=== PATIENT | male | born 1965 | race Caucasian/White ===

== ENCOUNTER 2016-12-10 11:14 | Emergency (ER) | payer MEDICAID ==
[~2016-12-10] VITALS: Ht 180.3 cm; Wt 104.3 kg
[~2016-12-10 11:14] MED LIST: AMOXIL500 MG PO; FLEXERIL10 MG PO; LORTAB 5/500 501 TAB PO; LORTAB 500 MG-71 TAB PO; MEDROL 4MG. DOSE4 MG PO; NAPROXEN SODIU500 MG PO; NOMEDS XX; PHENERGAN VC +120 M1 PO; TRAMADOL 50MG T50 MG PO; ULTRAM 50 MG TA50 MG PO; ZITHROMAX Z PA250 MG PO
--- NOTE | 2016-12-10 11:25 | Emergency Room Report ---
History of Present Illness Time Seen by [id number] Presenting Problem in Triage Pt arrived:Walked Presenting Problem:BENT OVER LAST NIGHT AND PICKED UP SOMETHING AND HURT BACK BUT WAS ABLE TO WALK. HE THEN LAID DOWN AND WAS UNABLE TO GET UP; SOMEHOW HE AMBULATED INTO THE ER. C/O LEFT BUTT CHEEK PAIN, DENIES NUMBNESS. 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 N Clinical Suspician of Infection? N Mental Status: 1 - Regular (Normal Baseline) Sepsis Risk:Low Sepsis Risk Have you (or family members/close friends) recently traveled outside the [place]? N If Yes, where/when: Have you had exposure to infectious disease within the past month? TB? Other? Specify: Comment Patient complains of low back pain. He says that he bent over to pick something up last evening had sudden onset of pain in his back. He says it "locked up". He says after a few minutes he was able to get it loosened up and stand back up but has continued severe pain in his lumbar area around his belt line radiating into his RIGHT buttock. No numbness or weakness. No loss of bowel or bladder control. No significant prior back problems. He has tried ibuprofen without relief. He tried to go to work today, could not work and was sent here by his boss. He drove himself here. PCP = Dr. Marshall. ALLERGIES Coded Allergies: No Known Allergies (12/10/16) History Medical History General CAD? No Angina: No [place]: No Hypertension? No Hyperlipidemia? No CHF? No DVT? No PE? No COPD? No Asthma? No Anemia? No GERD? No Gastric ulcers? No GI Bleed? No Hernia? No Thyroid Problems? No Hypothyroidism? No CVA? No Seizures? No Diabetes? No Renal Insuffiency? No End Stage Renal Disease? No UTI? No Stones? No BPH? No GB Disease: No Nephritic Syndrome? No Asplenia? No Hepatitis? No Sickle Cell Disease? No Arthritis? No Migraines? No Cataracts? No Glaucoma? No MRSA? No HIV? No TB? No Anxiety? No Depression? No Cancer? No More? No Immunization Hx Ped.Immunizations UTD Yes DT/Tetanus Unknown Surgical Hx Previous Surgery?Y Tonsils Social History Smoking Hx Smoker: Current Every Day Smoker Tobacco: Yes Type Cigarettes Packs/day 1 1/2 - 2 Packs Alcohol Alcohol: No Review of Systems All Other Systems Reviewed and Negative Constitutional denies fever Genitourinary denies: see HPI. Musculoskeletal back pain Psychiatric/Neurological denies numbness, denies weakness Physical Exam Vital Signs Vital Signs Date Time Temp Pulse Resp B/P Pulse O2 O2 Flow FiO2 Ox Delivery Rate 12/10 1240 82 18 142/75 99 12/10 1154 18 12/10 1119 97.9 84 18 168/84 100 General Appearance mild distress Respiratory Status No: respiratory distress. Cardiovascular regular rate/rhythm, normal peripheral pulses Back Tenderness lumbar midline at about L4-L5, and paraspinous muscles bilaterally Neurologic alert, no motor/sensory deficits Reflexes Comment 1+ patella bilaterally. 0+ RIGHT Achilles, 1+ LEFT Achilles. Medical Decision Making LABS/Meds/Orders Pt receiving controlled substance in ED? Yes Augustine was queried for this patient? Yes Comment [id number] rx. cough med in may. Results/Orders Current Medication Orders Sig/Carlos Start time Last Medication Dose Route Stop Time Status Admin Ketorolac 0 .STK-MED ONE 12/10 1149 DC Tromethamine .ROUTE Prednisone 0 .STK-MED ONE 12/10 1149 DC .ROUTE Ketorolac 60 MG ONCE ONE 12/10 1145 DC 12/10 Tromethamine IM 12/10 1146 1154 Prednisone 60 MG ONCE ONE 12/10 1145 DC 12/10 PO 12/10 1146 1153 Orders Procedure Date/time Status LUMBAR SPINE 5 VIEWS 12/10 1133 Active XRAY/CT/US XRAY/CT/US XRAY L-spine Comment X-ray interpreted by Christian Hernandez MD. Negative for fracture, dislocation, or subluxation. degenerative changes with spurs, narrowing at L5-S1 disc space. Departure Departure Disposition DC Home or Self Care(routine) Clinical Impression Primary Impression: Low back pain with sciatica Qualifiers: Chronicity: acute Back pain laterality: midline Sciatica laterality : sciatica of right side Qualified Code: M54.41 - Lumbago with sciatica, right side Secondary Impressions: Degenerative disc disease Qualifiers: Spinal region: lumbosacral Qualified Code: M51.37 - Other intervertebral disc degeneration, lumbosacral region Condition STABLE Patient Instructions DI for Back Pain With Sciatica, DI for Degenerative Disc Disease Additional Instructions Off work until Thursday12/15/16. Additional instructions for BACK PAIN: See your physician as soon as possible for further evaluation. Call Dr. Marshall to make an appointment to be seen. Return immediately if back pain becomes intolerable, or if fever, numbness or weakness of your legs, loss of control of your bowels or bladder. Prescriptions Current Visit Scripts HYDROCODONE/ACETAMINOPHEN ([place] 5-325 Tablet) 1 TAB PO Q6HP PRN pain #10 TAB Prednisone (Prednisone 10MG) 10 MG PO DAILY #27 TAB 6 po on days 1-2, then decrease dose by 1 pill per day until gone ED Critical Care Critical Care No at [id number]
[2016-12-10] MEDS ORDERED: PREDNISONE 10MG10 MG PO (12:32)
[2016-12-10] MEDS ORDERED: NORCO 325 MG-51 TAB PO (12:32)
[2016-12-10 12:40] VITALS: BP 142/75
--- NOTE | 2016-12-11 04:55 | RADIOLOGY REPORT PS360 ---
EXAM: LUMBAR SPINE 5 VIEWS HISTORY: Low back pain back pain ORDERING PHYSICIAN: Christian Hernandez MD PATIENT AGE: 51 years COMPARISON: None FINDINGS: Normal alignment. No fracture or dislocation. No lytic or blastic change. Degenerative disc disease is present in the floor into the greater degree L5-S1. Marginal osteophytes L3-S1. There may be canal stenosis and L5-S1 with posterior osteophytes at that level. There is a small metallic density overlying the left iliac lesion. IMPRESSION: 1. No acute finding. 2. Lumbar spondylosis with degenerative disc disease and osteophytosis with possible canal stenosis at L5-S1 . This may be confirmed with MRI if clinically warranted
== END 2016-12-10 12:41 | disposition home or self-care (01) ==
LOC: ER 11:14
DX: M54.41 Lumbago with sciatica, right side (principal); M51.37 Other intervertebral disc degeneration, lumbosacral region; F17.210 Nicotine dependence, cigarettes, uncomplicated

== ENCOUNTER 2017-01-22 18:26 | Emergency (ER) | payer MEDICAID ==
[~2017-01-22] VITALS: Ht 180.3 cm; Wt 104.3 kg
[~2017-01-22 18:26] MED LIST changes: +NORCO 325 MG-51 TAB PO; +PREDNISONE 10MG10 MG PO
[2017-01-22 18:59] LABS: HEMOGLOBIN 16.4 g/dL (14.1-18.0); LYMPH # 3.2 K/mm3 (0.7-4.5); LYMPH % 31.4 % (10-50)
[2017-01-22 19:12] LABS: URINE BILIRUBIN - DIPSTICK NEGATIVE (NEG); URINE BLOOD NEGATIVE (NEG)
[2017-01-22 19:23] LABS: URINE SQUAMOUS CELLS OCC #/hpf (OCC)
--- NOTE | 2017-01-22 19:50 | Emergency Room Report ---
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 N Clinical Suspician of Infection? N Mental Status: 1 - Regular (Normal Baseline) Sepsis Risk:Low Sepsis Risk Have you (or family members/close friends) recently traveled outside the [place]? N If Yes, where/when: Have you had exposure to infectious disease within the past month? TB? Other? Specify: R sided back pain and spasm x one month, pain seems worse today and now radiates to RLQ and into groin area. No urinary sx but has had a hx of calculi in the past. No hematuria. No loss of bowel or bladder function, no new neurological sx. No fever. No n/v/d, no blood from above or below. ALLERGIES Coded Allergies: No Known Allergies (12/10/16) History Medical History General CAD? No Angina: No [place]: No Hypertension? No Hyperlipidemia? No CHF? No DVT? No PE? No COPD? No Asthma? No Anemia? No GERD? No Gastric ulcers? No GI Bleed? No Hernia? No Thyroid Problems? No Hypothyroidism? No CVA? No Seizures? No Diabetes? No Renal Insuffiency? No End Stage Renal Disease? No UTI? No Stones? No BPH? No GB Disease: No Nephritic Syndrome? No Asplenia? No Hepatitis? No Sickle Cell Disease? No Arthritis? No Migraines? No Cataracts? No Glaucoma? No MRSA? No HIV? No TB? No Anxiety? No Depression? No Cancer? No More? No Immunization Hx DT/Tetanus Unknown Surgical Hx Previous Surgery?Y Tonsils Social History Smoking Hx Smoker: Current Every Day Smoker Tobacco: Yes Type Cigarettes Packs/day 1 1/2 - 2 Packs Alcohol Alcohol: No Review of Systems All Other Systems Reviewed and Negative Genitourinary denies: see HPI. Musculoskeletal see HPI Psychiatric/Neurological denies see HPI Physical Exam Vital Signs Vital Signs Date Time Temp Pulse Resp B/P Pulse O2 O2 Flow FiO2 Ox Delivery Rate 01/22 1847 20 01/22 1831 98.6 88 20 95 General Appearance normal appearance, WD/WN, no apparent distress Eye Exam - bilateral eye normal exam, bilateral eye PERRL, bilateral eye EOMI Neck normal inspection, non-tender, supple, full range of motion Respiratory Status Yes: trachea midline, chest symmetrical, non tender chest. No: respiratory distress, tender on palpation, use of accessory muscles, pain on inspiration, pain on expiration, productive cough, non productive cough. Lung Sounds bilateral: normal breath sounds, lungs clear. Cardiovascular normal exam, regular rate/rhythm, no peripheral edema, no gallop, no JVD, no murmur, no rub, normal peripheral pulses Gastrointestinal normal bowel sounds, normal exam, non tender, soft, no organomegaly, no pulsatile mass, no guarding, no rebound Back normal inspection, no CVA tenderness, no vertebral tenderness, bowel/ bladder continent, gait normal, muscle spasm (R gluteus), strt leg raising(L)- NML, strt leg raising(R)-NML Extremities non-tender, normal range of motion, normal inspection, normal capillary refill, no calf tenderness, no pedal edema, pelvis stable Strength 5 Upper Ext (L), 5 Upper Ext (R), 5 Lower Ext (L), 5 Lower Ext (R) Male Genitalia normal genitalia, no hernia on Valsalva, no testiciular masses; no lesions Nurse present during exam? Yes Neurologic alert, normal exam, no motor/sensory deficits, oriented x 3 Glascow Coma Scale Glascow Coma Scale Response Value EYE response: 4 Spontaneously 4 MOTOR response: 6 OBEYS 6 VERBAL response: 5 Oriented & Converses 5 Total 15 Reflexes DTR 3+ knee (R), 3+ knee (L), 3+ ankle (R), 3+ ankle (L) Skin intact, normal color, no rash cons.w/shingles Medical Decision Making LABS/Meds/Orders Pt receiving controlled substance in ED? No Results/Orders Laboratory Tests 01/22/17 1902: Urine Color YELLOW, Urine Appearance CLEAR, Urine pH 6.0, Ur Specific [place] >= 1.030, Urine Protein NEGATIVE, Urine Ketones NEGATIVE, Urine Blood NEGATIVE, Urine Nitrate NEGATIVE, Urine Bilirubin NEGATIVE, Urine Urobilinogen 0.2, Ur Leukocyte Esterase NEGATIVE, Urine RBC NONE, Urine WBC OCC, Ur Squamous Epith Cells OCC, Urine Bacteria TRACE, Urine Mucus 2+, Urine Glucose NEGATIVE 01/22/171834: Sodium 139, Potassium 4.2, Chloride 104, Carbon Dioxide 25, BUN 18, Creatinine 1.1, Estimated Creat Clear 119, Estimated GFR (MDRD) 71, Glucose 105, Calcium 9.5, Total Bilirubin 0.6, AST 21, ALT 32, Alkaline Phosphatase 109, Total Protein 8.2, Albumin 4.5, Globulin 3.7 H, Albumin/Globulin Ratio 1.2, Amylase 44, Lipase 161, WBC 10.1, RBC 5.35, Hgb 16.4, Hct 48.7, MCV 91.0, RDW 12.8, Plt Count 224, MPV 9.0, Gran % 58.6, Gran # 5.9, Lymphocytes % 31.4, Monocytes % 7.2 , Eosinophils % 2.2, Basophils % 0.7, Lymphocytes # 3.2, Monocytes # 0.7, Eosinophils # 0.2, Basophils # 0.1, PUBS MCHC 33.8, MCH 30.8 Current Medication Orders Sig/Carlos Start time Last Medication Dose Route Stop Time Status Admin Ondansetron HCl 4 MG ONCE ONE 01/22 1900 DC 01/22 IV 01/22 1901 185 Sodium Chloride 10 ML PRN PRN 01/22 1900 AC IV 01/23 1849 Ketorolac 30 MG ONCE ONE 01/22 1845 DC 01/22 Tromethamine IV 01/22 Ondansetron HCl 4 MG 01/22 1845 CAN IV Sodium Chloride 1,000 ML .Q1H1M 01/22 1845 DC 01/22 IV 01/22 Sodium Chloride 10 ML PRN PRN 01/22 1845 AC IV 01/24 1844 Sodium Chloride 1,000 ML .STK-MED ONE 01/22 1842 DC IV Ketorolac 0 .STK-MED ONE 01/22 1841 DC Tromethamine .ROUTE Ondansetron HCl 0 .STK-MED ONE 01/22 1841 DC .ROUTE Orders Procedure Date/time Status DIET-NOTHING BY MOUTH 01/[address] ABD & PELVIS W/O CONTRAST 01/[address] ABD/PELVIS REQ 01/22 1849 Complete IV SALINE LOCK 01/22 1849 Active URINALYSIS/COMPLETE 01/22 1849 Complete LIPASE 01/22 1849 Complete CBC WITH AUTO DIFF 01/22 1849 Complete CHEM 12 PROFILE 01/22 1849 Complete AMYLASE 01/22 1849 Complete XRAY/CT/US XRAY/CT/US CT abdomen, pelvis CT interpretation by reviewed by me Time results known: 1955 CT Results normal/NAD, [facility] report reviewed; neg acute findings Departure Departure Time of Disposition 1955 Disposition DC Home or Self Care(routine) Clinical Impression Primary Impression: Right flank pain Condition STABLE Patient Instructions DI for Low Back Pain Additional Instructions Rx Naproxen and Flexeril; see family MD of choice on list provided, follow up in one to five days. Discharge Counseling Counseled pt/family regarding diagnosis, test results, medications/RX, home care, follow up needs Prescriptions Current Visit Scripts NAPROXEN (NAPROXEN 500MG TAB) 500 MG PO BIDP PRN pain #20 TAB Cyclobenzaprine Hcl (Flexeril) 5 MG PO BID PRN muscle spasm #6 TAB ED Critical Care Critical Care No at 1959
[2017-01-22] MEDS ORDERED: NAPROXEN SODIU500 MG PO (19:59)
[2017-01-22] MEDS ORDERED: FLEXERIL10 MG PO (19:59)
[2017-01-22 20:12] VITALS: BP 135/80
--- NOTE | 2017-01-23 07:49 | RADIOLOGY REPORT PS360 ---
CT ABD PELVIS W/O CONTRAST CLINICAL INDICATION: Generalized abdominal pain, flank pain, right testicular pain, history of kidney stones ABDOMINAL/BACK PAIN ORDERING PHYSICIAN: Vira Randolph MD PATIENT AGE: 51 years COMPARISON: None TECHNIQUE: Axial images obtained with sagittal and coronal reformats. PROCEDURE: Oral Contrast: None IV Contrast: None . FINDINGS: Lower thorax: No acute finding ABDOMEN: Liver: No masses or biliary dilatation. Gallbladder: Nondistended. No radio opaque stones. Pancreas: No masses or peripancreatic fluid collections. Spleen: Unremarkable. Adrenals: Unremarkable Kidneys/ureters: No masses. No renal calculi. No hydronephrosis. No perinephric fluid collections. No ureteral dilatation or obvious ureteral calculi. Stomach bowel: Nondistended. No obvious mass or thickening. Appendix: No evidence of appendicitis. PELVIS: Reproductive: Unremarkable Bladder: Nondistended. No obvious stones or masses. ABDOMEN & PELVIS: Peritoneum: No abnormal fluid collections. No obvious inflammatory changes. No free air. Lymph nodes: No enlarged lymph nodes apparent. Vasculature: No evidence of abdominal aortic aneurysm. No retroperitoneal hemorrhage evident. Bones: Degenerative disc disease L5-S1 with bulging disc osteophyte complex and mild bilateral foraminal narrowing IMPRESSION: 1. No acute abdominal or pelvic findings. 2. No obstructing renal or ureteral calculi. Unremarkable appendix 3. Degenerative disc disease L5-S1 with bulging disc osteophyte complex with mild bilateral foraminal narrowing
== END 2017-01-22 20:13 | disposition home or self-care (01) ==
LOC: ER 18:26
PROVIDERS: Emergency Medicine
DX: R10.31 Right lower quadrant pain (principal); F17.210 Nicotine dependence, cigarettes, uncomplicated
CPT/HCPCS: J2405